=== PATIENT | male | born 1965 | race Caucasian/White ===

== ENCOUNTER 2020-09-27 06:35 | Day surgery (SDC) | payer OTHER ==
[2020-09-27] VITALS (7 sets, daily range): BP systolic 139–152; BP diastolic 80–94; PULSE 57–96; TEMP 97.9–98.7
[~2020-09-27] VITALS: Ht 167.6 cm; Wt 112.0 kg
[2020-09-27] MEDS ORDERED: ASPIRIN 81M81 MG/TA2 PO (07:13)
[2020-09-27] MEDS ORDERED: ZOCOR 40MG40 MG PO (07:13)
[2020-09-27] MEDS ORDERED: FLOMAX 0.40.4 MG/CAP PO (07:14)
[2020-09-27] MEDS ORDERED: NORCO 325 MG-51 TAB PO (07:14)
[2020-09-27] MEDS ORDERED: MINOCYCLIN100 MG/CAP PO (07:15)
--- NOTE | 2020-09-27 07:30 | NUR ---
Patient admitted to room 322. Patient alert & oriented. Czech is his main language, but does understand [place]. His son at bedside to assisted with interpertation if needed. I did offer translation line, patient declined. Consented obtained, he reports already discussing with & denies questions or concerns. All admission paperwork completed, including med rec, & intake & assessement. Vss on room air. Katie assisted to start IV in hand. Ivf to graviity. Will await patient retrun from OR.
--- NOTE | 2020-09-27 09:29 | NUR ---
Patient has returned from Or. Report from Katie. Slightly drowsy. Vss on room air.Patient up to the bathroom. Reports being thirsty. Water provided. Will monitor. Son at bedside
--- NOTE | 2020-09-27 10:07 | NUR ---
Patient talking on the phone. Son ordering food. Vss on room air.
--- NOTE | 2020-09-27 11:11 | NUR ---
Patient continues to do well post op. Patient tolerated a meal tray. Vitals stable. He was up to the bathroom & voided again some burning noted.
--- NOTE | 2020-09-27 12:01 | NUR ---
Patient spoke to on the phone all questions answered, spoke mongolian to patient.
--- NOTE | 2020-09-27 12:25 | NUR ---
Patient ready for discharge. Patient given instructions written in yoruba. Patient and his son denies questions or concerns. Int dc. Loven ambulated out with all belongings his taking him home. Thankful for cares given
--- NOTE | 2020-09-27 14:31 | NUR ---
SW met with patien about DC. Patient speaks [place] and son in room to translate for the patient. Patient reports that they reside in and his [place] is his EMR contact at [phone]. PCP is at [facility] and medications are obtained at [facility] on [address] without difficulty.Denies having any concerns at this time about care. VA'ed
== END 2020-09-27 12:27 | disposition home or self-care (01) ==
LOC: SURG 06:35 → SDCO 06:35
DX: N20.1 Calculus of ureter (principal); R31.29 Other microscopic hematuria; E78.00 Pure hypercholesterolemia, unspecified; E78.2 Mixed hyperlipidemia; Z79.82 Long term (current) use of aspirin; Z79.899 Other long term (current) drug therapy; Z79.891 Long term (current) use of opiate analgesic
CPT/HCPCS: OP; C1769; C2617; J0690; J1100; J2405; J2704; J3010